=== PATIENT | male | born 1965 | race Caucasian/White ===

== ENCOUNTER 2017-01-16 13:03 | Outpatient (CLI) | payer MEDICARE, OTHER ==
[~2017-01-16 13:03] MED LIST: ALPRAZOLAM0.5 MG PO; ATIVAN1 MG ORAL; BENADRYL25 MG ORAL; BENADRYL50 MG PO; BENZTROPINE MESY1 MG PO; CYMBALTA30 MG PO; FENOFIBRATE43 MG ORAL; INVEGA SUS117 MG/0.7 IM; LITHIUM CARBON150 MG ORAL; LORAZEPAM1 MG ORAL; LORAZEPAM2 MG ORAL; PROVENTIL HFA6.7 G1 IH; RISPERDAL0.25 MG ORAL; SEROQUEL100 MG ORAL; SEROQUEL200 MG ORAL; UNOBMED; [UNRECOGNIZED DRUG - OTHER] PO
[2017-01-23 12:21] LABS: HEMOGLOBIN A1C 5.6 % (4.3-6.0)
[2017-01-23 12:51] LABS: BASOPHILS % (AUTO) 1.1 % (0.0-2.0); EOSINOPHILS % (AUTO) 1.9 % (0.0-3.0); LYMPHOCYTES % (AUTO) 26.9 % (20.0-45.0); MEAN CORPUSCULAR HEMOGLOBIN 32.6 PG (27.0-31.0); MEAN CORPUSCULAR HGB CONC 33.8 G/DL (32.0-36.0); MEAN CORPUSCULAR VOLUME 97 FL (80-99); MEAN PLATELET VOLUME 6.2 FL (6.5-10.1); MONOCYTES % (AUTO) 5.9 % (1.0-10.0); NEUTROPHILS % (AUTO) 64.2 % (45.0-75.0); PLATELET COUNT 253 K/UL (150-450); RED BLOOD COUNT 5.03 M/UL (4.70-6.10); RED CELL DISTRIBUTION WIDTH 10.9 % (11.6-14.8); WHITE BLOOD COUNT 4.3 K/UL (4.8-10.8)
[2017-01-23 13:04] LABS: ALANINE AMINOTRANSFERASE 29 U/L (12-78); ALBUMIN/GLOBULIN RATIO 1.4 (1.0-2.7); ANION GAP 7 mmol/L (5-15); ASPARTATE AMINO TRANSFERASE 19 U/L (15-37); CALCIUM 8.8 MG/DL (8.5-10.1); CARBON DIOXIDE 31 MMOL/L (21-32); CHLORIDE 105 MMOL/L (98-107); CREATININE 0.8 MG/DL (0.55-1.30); GLOMERULAR FILTRATION RATE > 60 mL/min (>60); MAGNESIUM 1.8 MG/DL (1.8-2.4); PHOSPHORUS 3.4 MG/DL (2.5-4.9); SODIUM 143 MMOL/L (136-145); THYROID STIMULATING HORMONE 1.087 uiU/mL (0.358-3.740); TOTAL PROTEIN 7.1 G/DL (6.4-8.2)
[2017-01-23 13:14] LABS: BILIRUBIN,DIRECT < 0.1 MG/DL (0.0-0.3)
[2017-01-24 08:08] LABS: PSA FREE 0.37 ng/mL
== END 2017-01-16 15:03 | disposition home or self-care (01) ==
LOC: LAB 13:03
DX: E11.9 Type 2 diabetes mellitus without complications (principal); Z83.3 Family history of diabetes mellitus; Z81.8 Family history of other mental and behavioral disorders
CPT/HCPCS: 36415; 80053; 80178; 82248; 82306; 82607; 83036; 83735; 84100; 84153; 84154; 84443; 85025

== ENCOUNTER 2019-03-24 10:58 | Outpatient (CLI) | payer MEDICARE, OTHER ==
[~2019-03-24] VITALS: Ht 177.8 cm; Wt 65.3 kg
[~2019-03-24 10:58] MED LIST changes: +BUPROPION HCL75 MG PO; +CBD; +CBD ORAL; +CBD PO; +EPIDIOLEX100 MG/1 M PO; +FENOFIBRATE48 MG ORAL; +MEN'S MULTIVIT1 EACH PO
[2019-03-24 13:18] VITALS: BP 94/59
--- NOTE | 2019-03-25 20:01 | Consultation ---
DATE OF CONSULTATION: 03/24/2019 CONSULTING PHYSICIAN: Saul Haynes M.D. REFERRING PHYSICIAN: Salazar Morton M.D. CHIEF COMPLAINT: Referral for screening colonoscopy. HISTORY OF PRESENT ILLNESS: This is a very pleasant 53-year-old male with past medical history of depression, schizophrenia, and attention disorder, was referred to us for screening colonoscopy. PAST MEDICAL HISTORY: 1. Depression. 2. Schizophrenia. 3. Attention deficit. PAST SURGICAL HISTORY: Right index surgery. MEDICATIONS: Please see medication reconciliation list. SOCIAL HISTORY: The patient denies any alcohol, but occasionally smokes cigars. No IV drug abuse. FAMILY HISTORY: No family history of GI malignancy. ALLERGIES: Xifaxan, Risperdal, Cymbalta, and Zoloft. REVIEW OF SYSTEMS: A 10-point review of systems performed and pertinent positives in HPI. PHYSICAL EXAMINATION: GENERAL: A well-developed male, in no acute distress. VITAL SIGNS: Temperature is 98, pulse 80, respirations 20, and blood pressure 94/54. HEENT: Normocephalic and atraumatic. Sclerae are anicteric. NECK: Supple. No evidence of obvious lymphadenopathy. CARDIOVASCULAR: Regular rate and rhythm. Plus S1 and S2. No obvious murmur. LUNGS: Clear to auscultation bilaterally. ABDOMEN: Positive bowel sounds. Soft and nontender. No rebound. No guarding. No peritoneal sign. EXTREMITIES: No cyanosis, no clubbing, no edema. ASSESSMENT AND PLAN: This is a 53-year-old male who was referred to us for screening colonoscopy. The patient was given the instruction for colonoscopy, the prep was also explained to him. The patient is scheduled for colonoscopy next week. I want to thank Dr. Salazar Morton for this kind referral. Saul Haynes M.D. DR: LAKEISHA JOB#: [id number] CC: Salazar Morton M.D.; Fax#: [phone]
== END 2019-03-24 12:58 | disposition home or self-care (01) ==
LOC: PAN 10:58
DX: F32.9 Major depressive disorder, single episode, unspecified (principal); F20.9 Schizophrenia, unspecified; F90.9 Attention-deficit hyperactivity disorder, unspecified type; Z88.8 Allergy status to other drugs, medicaments and biological substances
CPT/HCPCS: G0463